=== PATIENT | female | born 1960 | race Caucasian/White ===

== ENCOUNTER 2016-06-07 17:43 | Emergency (ER) | payer BC ==
[2016-06-07] MEDS ORDERED: methylPREDNISolone SOD SUCCI 125 MG/2 ML VIAL IV STA (18:21)
[2016-06-07] MEDS ORDERED: FAMOTIDINE 20 MG/2 ML VIAL IV STA (18:21)
[2016-06-07 19:58] VITALS: BP 166/76; PULSE 71; RESP 16; TEMP 99.1
--- NOTE | 2016-06-07 20:19 | ED ---
General Adult HPI - General Chief complaint: Allergic Reaction Stated complaint: allergic reaction Time Seen by Provider: 06/07/16 18:10 Source: patient Mode of arrival: ambulatory Limitations: no limitations - History of Present Illness Initial comments: 55-year-old female presented for evaluation of a presumed ALLERGIC reaction. She states that she has had little sores that a popped up on her chin and by her nose over the past few days that have gradually been improving. There is also some swelling underneath her chin that was initially quite large but has been regressing. Despite the symptoms resolving she tried a pill of Bactrim to help improve her symptoms. The Bactrim was from a previous prescription given in February of last year. Within 15 minutes she had "skin crawling" sensation throughout her body as well as pain to her feet, headache, and restlessness. She took 50 mg benadryl prior to coming to the ED without effect. She admits to a minimal feeling of breathlessness when she took the pills back in February but never completed the course. There are no exacerbating or alleviating factors. She denies any diffuse rash to her body and states that her airway does not feel swollen, and there is no shortness of breath/wheezing. - Related Data Home Medications Medication Instructions Recorded Confirmed No Known Home Medications [No 06/07/16 06/07/16 Known Home Medications] Allergies Allergy/AdvReac Type Severity Reaction Status Date / Time sulfamethoxazole AdvReac Itching Verified 06/07/16 18:31 [From Bactrim] trimethoprim [From Bactrim] AdvReac Itching Verified 06/07/16 18:31 Review of Systems ROS Statement: Those systems with pertinent positive or pertinent negative responses have been documented in the HPI. ROS Other: All systems not noted in ROS Statement are negative. Constitutional: Denies: fever, chills Eyes: Denies: eye pain, eye discharge ENT: Denies: ear pain, throat pain Respiratory: Denies: cough, dyspnea Cardiovascular: Denies: chest pain, palpitations Gastrointestinal: Denies: abdominal pain, nausea, vomiting Genitourinary: Denies: urgency, dysuria Musculoskeletal: Denies: back pain, myalgia Skin: Reports: lesions, other (Skin crawling sensation). Denies: rash Neurological: Reports: headache. Denies: weakness Psychiatric: Reports: anxiety. Denies: auditory hallucinations, visual hallucinations Past Medical History Past Medical History: No Reported History History of Any Multi-Drug Resistant Organisms: None Reported Additional Past Surgical History / Comment(s): BACK Past Psychological History: No Psychological Hx Reported Smoking Status: Never smoker Past Alcohol Use History: Occasional Past Drug Use History: None Reported General Exam Limitations: no limitations General appearance: alert, in no apparent distress Head exam: Present: atraumatic, normocephalic Eye exam: Present: normal appearance, EOMI ENT exam: Present: normal exam, normal oropharynx, mucous membranes moist. Absent: mucous membranes dry Neck exam: Present: normal inspection. Absent: tenderness Respiratory exam: Present: normal lung sounds bilaterally. Absent: respiratory distress, wheezes Cardiovascular Exam: Present: regular rate, normal rhythm. Absent: bradycardia , tachycardia GI/Abdominal exam: Present: soft. Absent: distended, tenderness, guarding Rectal exam: Present: deferred Extremities exam: Present: normal inspection, full ROM Back exam: Present: normal inspection, full ROM Neurological exam: Present: alert, oriented X3, normal gait Psychiatric exam: Present: anxious. Absent: flat affect, manic Skin exam: Present: warm, dry (2 erythematous lesions to the left side of her chin as well as another one to the right nasolabial fold) Course Vital Signs 06/07/16 06/07/16 18:03 19:56 Temperature 99.8 F H 99.1 F Pulse Rate 66 71 Respiratory 20 16 Rate Blood Pressure 144/71 166/76 O2 Sat by Pulse 97 98 Oximetry Medical Decision Making - Medical Decision Making 55-year-old female presented for evaluation of ALLERGIC reaction after taking a Bactrim for lesions to face. She states she was prescribed Bactrim back in February and although she didn't complete the course she does state that she had some very mildly similar symptoms at that time. She tried taking Benadryl prior to coming to the ED without improvement. She states her symptoms consist of skin crawling sensation, lower extremity pain, headache, and restlessness sensation. She was provided with Pepcid and Solu-Medrol, Benadryl was withheld as she took some prior to arrival. On reevaluation the patient had near resolution of her symptoms with only a mildly persisting headache. She was advised not to take the Bactrim anymore and to schedule an appointment with her primary care physician later this week for further evaluation and workup of the improving lesions to her face and chin. She was further advised to return to this facility if her symptoms should worsen or persist. She acknowledged an understanding of this information and agreed with this plan of care. Disposition Clinical Impression: Allergic reaction caused by a drug Disposition: HOME SELF-CARE Condition: Stable Instructions: Anaphylaxis (ED) Referrals: Faby Fofana MD [Primary Care Provider] - 1-2 days Time of Disposition: 20:19
== END 2016-06-07 20:30 | disposition home or self-care (01) ==
LOC: EC 17:43
DX: R20.8 Other disturbances of skin sensation (principal); R45.1 Restlessness and agitation; R51 Headache; M79.673 Pain in unspecified foot; T37.0X5A Adverse effect of sulfonamides, initial encounter
CPT/HCPCS: 99283; 96374; 96375; J2930

== ENCOUNTER → 2016-10-24 | Outpatient (CLI) | payer BC ==
--- NOTE | 2016-10-24 16:49 | XR ---
EXAMINATION TYPE: XR chest 2V DATE OF EXAM: 10/24/2016 COMPARISON: NONE HISTORY: Chronic cough for 8 months. TECHNIQUE: Frontal and lateral views of the chest are obtained. FINDINGS: There is no focal air space opacity, pleural effusion, or pneumothorax seen. The cardiac silhouette size is within normal limits. Slight underlying scoliosis is present. IMPRESSION: No suspicious acute infiltrate is seen.
== END | disposition home or self-care (01) ==
LOC: RADXRMAIN 16:27
PROVIDERS: ATTEND Family Medicine
DX: R05 Cough (principal)
CPT/HCPCS: 71020

== ENCOUNTER → 2017-01-05 | Outpatient (CLI) | payer BC ==
--- NOTE | 2017-01-07 08:53 | MM ---
Reason for exam: screening (asymptomatic). Last mammogram was performed 3 years ago. History: Patient is nulliparous. Took hormonal contraceptives for 27 years beginning at age 18. Physical Findings: A clinical breast exam by your physician is recommended on an annual basis and results should be correlated with mammographic findings. MG Screening Mammo w CAD Bilateral CC and MLO view(s) were taken. XCCL view(s) were taken of the right breast. Prior study comparison: January 16, 2014, bilateral MG screening mammo w CAD. The breast tissue is extremely dense which could obscure a lesion on mammography. No significant changes when compared with prior studies. ASSESSMENT: Benign, BI-RAD 2 RECOMMENDATION: Routine screening mammogram of both breasts in 1 year.
== END | disposition home or self-care (01) ==
LOC: RADMAMWWP 13:48
PROVIDERS: ATTEND Family Medicine
DX: Z12.31 Encounter for screening mammogram for malignant neoplasm of breast (principal)

== ENCOUNTER → 2017-03-11 | Outpatient (CLI) | payer BC ==
--- NOTE | 2017-03-11 08:48 | US ---
EXAMINATION TYPE: US thyroid st tissue head/neck DATE OF EXAM: 03/11/2017 COMPARISON: 01/16/2014 CLINICAL HISTORY: R22.6 sWELLING/MASS/PALPABLE ABNORMALITY HEAD/NECK. Chronic cough. Nodules GLAND SIZE: Right Lobe: 5.3 x 1.7 x 1.3 cm Overall Parenchyma: homogenous Left Lobe: 5.2 x 1.4 x 2.1 cm Overall Parenchyma: homogeneous Isthmus Thickness: 0.3 cm NODULES RIGHT: # of nodules measured on right: 0 LEFT: # of nodules measured on left: 3 1. 1.7 X 0.7 x 1.7 cm isoechoic solid nodule at the mid pole with well-defined margins; . This nod ule is wider than tall and shows intranodular vascularity. Prior size: 1.6 x 1.4 x 1.2 cm 2. 0.8 X 0.6 x 0.8 cm hypoechoic solid nodule at the mid pole with well-defined margins; . This nod ule is wider than tall and shows intranodular vascularity. Prior size: No previous 3. 0.7 X 0.5 x 0.6 cm hypoechoic solid nodule at the mid pole with well-defined margins; . This nod ule is wider than tall and shows intranodular vascularity. Prior size: 0.5 x 0.6 x 0.3 cm ISTHMUS: # of nodules measured in the isthmus: 0 Bilateral thyroid lobes slightly enlarged. Left sided thyroid nodules. Question nodule 1 & 2 on the left 1 single nodule vs 2 separate nodules. Bilateral neck scanned, no evidence of lymphadenopathy. Heterogeneous slightly prominent thyroid is redemonstrated scattered small left-sided nodules. Larges t nodule left thyroid lobe is unchanged in size and appearance from prior study IMPRESSION: Heterogeneous slightly enlarged thyroid gland redemonstrated with stable 1.7 cm left thyroid nodule, no new greater than 1 cm solid or cystic nodules are evident bilaterally.
== END | disposition home or self-care (01) ==
LOC: RADUSWWP 07:34
PROVIDERS: ATTEND Internal Medicine Critical Care Medicine
DX: E04.1 Nontoxic single thyroid nodule (principal)
CPT/HCPCS: 76536

== ENCOUNTER → 2017-07-15 | Outpatient (CLI) | payer OTHER ==
[2017-07-15 22:17] LABS: Alternaria alternata IgE 0.25 kU/L; Birch IgE <0.10 kU/L; Cat Epith & Dander IgE <0.10 kU/L; Cockroach IgE <0.10 kU/L; Dermato. farinae IgE <0.10 kU/L; Dog Dander IgE <0.10 kU/L; Elm IgE <0.10 kU/L; Maple (Box Elder) IgE <0.10 kU/L; Oak IgE <0.10 kU/L; Ragweed,Common IgE <0.10 kU/L; Red Top (Bentgrass) IgE <0.10 kU/L
[2017-07-15 22:26] LABS: Clam IgE <0.10 kU/L; Codfish IgE <0.10 kU/L; Egg White IgE <0.10 kU/L; Peanut IgE <0.10 kU/L; Scallop IgE <0.10 kU/L; Shrimp IgE <0.10 kU/L; Soybean IgE <0.10 kU/L; Walnut IgE (Food) <0.10 kU/L
== END | disposition home or self-care (01) ==
LOC: LABWHC1 10:17
PROVIDERS: ATTEND Internal Medicine Critical Care Medicine
DX: R05 Cough (principal); R09.89 Other specified symptoms and signs involving the circulatory and respiratory systems; R06.7 Sneezing
CPT/HCPCS: 36415; 82785; 86003

== ENCOUNTER → 2017-08-11 | Outpatient (CLI) | payer OTHER ==
--- NOTE | 2017-08-11 19:13 | CT ---
EXAMINATION TYPE: CT sinus wo con DATE OF EXAM: 08/11/2017 COMPARISON: NONE HISTORY: Chronic sinusitis. CT DLP: [address] of the paranasal sinuses was performed in the axial and coronal planes. Bone and soft tissue settings are submitted. The paranasal sinuses demonstrate normal aeration and development. The paranasal sinuses are free of mucosal thickening or air fluid level. The osteal meatal units are patent bilaterally. The nasal septum is midline. No bony destructive changes are seen within the field of view. IMPRESSION: Normal unenhanced CT of the paranasal sinuses.
== END | disposition home or self-care (01) ==
LOC: RADCTMAIN 18:36
PROVIDERS: ATTEND Family Medicine
DX: R05 Cough (principal)
CPT/HCPCS: 70486

== ENCOUNTER → 2020-06-19 | Outpatient (CLI) | payer BC ==
--- NOTE | 2020-06-19 11:02 | US ---
EXAMINATION TYPE: US thyroid st tissue head/neck DATE OF EXAM: 06/19/2020 COMPARISON: Thyroid ultrasound March 11, 2017 CLINICAL HISTORY: E04.1 Thyroid Nodule. thyroid nodule GLAND SIZE: Right Lobe: 6.2 x 1.7 x 2.0 cm Overall Parenchyma: homogenous Left Lobe: 6.0 x 1.6 x 2.1 cm Overall Parenchyma: homogeneous Isthmus Thickness: 0.3 cm NODULES RIGHT: # of nodules measured on right: 0 LEFT: # of nodules measured on left: 3 1. 1.2 X 0.7 x 1.3 cm, mid , mixed, nodule, which is wider than tall, with lobulated or irregular m argins, without echogenic foci. Prior size: 1.7 x 0.7 x 1.7 cm 2. 0.6 X 0.5 x 0.6 cm, mid , mixed, isoechoic nodule, which is wider than tall, with lobulated or irregular margins, with echogenic foci. Prior size: 0.8 x 0.6 x 0.8 cm 3. 0.8 X 0.6 x 0.7 cm, mid, solid, isoechoic nodule, which is wider than tall, with ill-defined mar gins, without echogenic foci. Prior size: 0.7 x 0.5 x 0.6 cm ISTHMUS: # of nodules measured in the isthmus: 0 Bilateral neck scanned, no evidence of lymphadenopathy. Stable fairly homogeneous thyroid gland measures slightly enlarged with stable bilateral nodules. IMPRESSION: As above. No new or enlarging greater than 1 cm solid nodules.
== END ==
LOC: RADUSWWP 10:10
PROVIDERS: ATTEND Family Medicine
DX: E04.2 Nontoxic multinodular goiter (principal)
CPT/HCPCS: 76536

== ENCOUNTER → 2021-05-01 | Outpatient (CLI) | payer OTHER ==
--- NOTE | 2021-05-02 16:12 | BD ---
EXAMINATION TYPE: Axial Bone Density DATE OF EXAM: 05/01/2021 COMPARISON: 01.16.2014 CLINICAL HISTORY: 60 YR OLD FEMALE.....ICD-10 CODE: Z78.0 MENOPAUSAL, M89.9 BD DISORDER Height: 65.8 Weight: 190 FRAX RISK QUESTIONS: RISK FACTORS HISTORY OF: Surgery to Spine/Hip(right/left)/Wrist (right/left): FUSION, OF L4 AND L5...1998 Diet low in dairy products/other sources of calcium: YES Postmenopausal woman: YES AT AGE, 50 Lost more than 2 inches in height since high school: YES, 69 INCHES IN HIGH SCHOOL Hyperparathyroidism: NO Adrenal Insufficiency: NO MEDICATIONS: Additional Medications: VIT D AND CALCIUM Additional History: THYROID NODULE, HEIGHT LOSS EXAM MEASUREMENTS: Bone mineral densitometry was performed using the [employer] System. LUMBAR FUSION, SPINE NOT SCANNED Bone mineral density about the R hip (g/cm2): 0.853 Bone mineral density about the L hip (g/cm2): 0.819 T Score values are as follows: -----R Neck: -1.1 -----L Neck: -1.8 -----R Total: -1.2 -----L Total: -1.5 Bone mineral density has: Decreased -13.5% since study of: 01.16.2014 FRAX%s: THERE IS A 9.1% CHANCE FOR A MAJOR OSTEOPOROTIC FX AND A 1.0% FOR HIPS.....PROBABILITY FO R FX IN 10 YRS TIME Bone mineral density about the L Wrist (g/cm2): 0.563 T Score values are as follows: -----Dist. R+U: -2.1 -----Prox. R+U: -0.7 -----Radius total: -1.6 Bone mineral density FIRST SCAN OF FOREARM FOR THIS PATIENT IMPRESSION: Osteopenia (T Score between -2.5 and -1) is now present. There is slightly increased risk of fracture and the patient may be considered for treatment. Re-Screen 2-5 years. NOTE: T-SCORE=SD OF THE YOUNG ADULT MEAN.
== END | disposition home or self-care (01) ==
LOC: RADBDWWP 13:13
PROVIDERS: ATTEND Family Medicine
DX: M85.89 Other specified disorders of bone density and structure, multiple sites (principal); Z78.0 Asymptomatic menopausal state
CPT/HCPCS: 77080

== ENCOUNTER → 2021-05-02 | Outpatient (CLI) | payer BC, OTHER ==
--- NOTE | 2021-05-03 11:11 | MM ---
Reason for exam: additional evaluation requested from prior study. Last mammogram was performed 4 years and 4 months ago. History: Patient is postmenopausal, history of other cancer, and is nulliparous. Benign excisional biopsy of the left breast. Took hormonal contraceptives for 27 years beginning at age 18. Physical Findings: Nurse did not find any significant physical abnormalities on exam. MG 3D Diag Mammo W/Cad JOSE LUIS Bilateral CC and MLO view(s) were taken. Prior study comparison: January 05, 2017, bilateral MG screening mammo w CAD. January 16, 2014, bilateral MG screening mammo w CAD. The breast tissue is extremely dense which could obscure a lesion on mammography. There is no discrete abnormality. No significant changes when compared with prior studies. ASSESSMENT: Benign, BI-RAD 2 RECOMMENDATION: Routine screening mammogram of both breasts in 1 year.
--- NOTE | 2021-05-03 11:12 | USB ---
Reason for exam: additional evaluation requested from prior study. History: Patient is postmenopausal, history of other cancer, and is nulliparous. Benign excisional biopsy of the left breast. Took hormonal contraceptives for 27 years beginning at age 18. US Breast BILAT Right complete breast ultrasound includes all four quadrants, the retroareolar region and axilla. Finding demonstrates a 0.6 x 0.6 x 0.6cm lesion at 7 o'clock. Left complete breast ultrasound includes all four quadrants, the retroareolar region and axilla. Finding demonstrates no cystic or solid lesion seen. These results were verbally communicated with the patient and result sheet given to the patient on 05/02/21. ASSESSMENT: Negative, BI-RAD 1 RECOMMENDATION: Routine screening mammogram of both breasts in 1 year.
== END | disposition home or self-care (01) ==
LOC: RADMAMWWP 14:00
PROVIDERS: ATTEND Family Medicine
DX: N64.4 Mastodynia (principal); Z78.0 Asymptomatic menopausal state
CPT/HCPCS: 77062; 77066